=== PATIENT | male | born 1980 | race Two or more races ===

== ENCOUNTER 2018-03-12 16:17 | Emergency (ER) | payer MEDICAID ==
[~2018-03-12] VITALS: Ht 177.8 cm; Wt 90.7 kg
[2018-03-12 16:34] VITALS: BP_SYST 127
[2018-03-12] MEDS ORDERED: KETOROLAC TROMETHAMINE 60 MG/2 ML VIAL IM ONE (17:00)
[2018-03-12] MEDS ORDERED: LIDOCAINE 1% 10 MG/ML, 20 ML MDV INJ ONE (17:00)
[2018-03-12 17:50] VITALS: BP_SYST 127
== END 2018-03-12 17:50 | disposition home or self-care (01) ==
LOC: SED 16:17
DX: L02.413 Cutaneous abscess of right upper limb (principal)
CPT/HCPCS: 10060; 96372; 99283; J1885; J2001